=== PATIENT | female | born 1985 | race Two or more races ===

== ENCOUNTER 2017-12-22 03:19 | Emergency (ER) | payer SELFPAY ==
[~2017-12-22] VITALS: Ht 160 cm; Wt 52.2 kg
--- NOTE | 2017-12-22 03:23 | NUR ---
PT BIB [facility] WITH A C/O YELLING WHILE WALKING THE STREETS, SPEAKING INCOHERENTLY, NOT FOLLOWING COMMANDS. PT BIB [facility] VIA WC. PT IS GRUNTING AND YELLING/CRYING. PT WAS TRIAGED IN ROOM #6. PT WAS PLACE ON THE MONITOR AND CONTINUOUS PULSE OX. PT ANSWERS QUESTIONS WHEN TOUCHED. DR. CARLOS IS AT THE BEDSIDE.
--- NOTE | 2017-12-22 03:27 | NUR ---
MEDICATIONS ORDERED AND THEN CANCELLED BY . JonathanYPREXA AND ATIVAN IM WASTED. PT AGREED TO PO MEDICATION.
[2017-12-22] MEDS ORDERED: LORAZEPAM INJ 2 MG/ML VIAL IM ONE (03:30)
[2017-12-22] MEDS ORDERED: OLANZAPINE 10 MG VIAL IM ONE ×2 (03:30→03:33)
--- NOTE | 2017-12-22 03:33 | NUR ---
Levon mercer in [facility] - 12/22/17 at 0432 by JOSHUA PT REC'D MEDICATION ORDRED.
[2017-12-22] MEDS ORDERED: LORAZEPAM INJ 2 MG/ML VIAL ONE (03:34)
[2017-12-22] MEDS ORDERED: OLANZAPINE 5 MG TABLET ONE (03:37)
[2017-12-22] MEDS ORDERED: LORAZEPAM 1 MG TABLET ONE (03:37)
--- NOTE | 2017-12-22 03:40 | NUR ---
PT REC'D MEDICATION ORDERED.
--- NOTE | 2017-12-22 03:50 | NUR ---
PT TRIED TO GIVE A URINE SAMPLE, BUT WAS NOT ABLE TO GIVE ONE AT THIS TIME. PT IS SCRATCHING HER BACK AND ABD. DR. CARLOS NOTIFIED.
[2017-12-22 03:54] LABS: BASOPHILS # (AUTO) 0.1 /CMM (0.0-0.2); BASOPHILS % (AUTO) 1.3 % (0.0-2.0); EOSINOPHILS % (AUTO) 1.6 % (0.0-6.0); HEMATOCRIT 36 % (33-45); HEMOGLOBIN 11.5 g/dL (11.5-14.8); LYMPHOCYTES # (AUTO) 2.7 /CMM (0.8-4.8); LYMPHOCYTES % (AUTO) 39.3 % (20.0-44.0); MEAN CORPUSCULAR HGB CONC 32 g/dl (31.0-36.0); MEAN CORPUSCULAR VOLUME 77 fL (82-100); MONOCYTES # (AUTO) 0.3 /CMM (0.1-1.30); MONOCYTES % (AUTO) 4.4 % (2.0-12.0); NEUTROPHILS # (AUTO) 3.7 /CMM (1.8-8.9); NEUTROPHILS % (AUTO) 53.4 % (43.0-81.0); PLATELET COUNT (AUTO) 323 /CMM (150-450); RDW COEFFICIENT OF VARIATION 17.9 (11.5-15.0); RED BLOOD CELL COUNT(AUTO) 4.69 MIL/uL (4.0-5.2); WHITE BLOOD COUNT (AUTO) 6.9 K/uL (4.3-11.0)
[2017-12-22] MEDS ORDERED: OLANZAPINE 5 MG/TAB.RAPDIS PO ONE ×2 (04:00→05:00)
[2017-12-22] MEDS ORDERED: LORAZEPAM 1 MG TABLET PO ONE (04:00)
[2017-12-22] MEDS ORDERED: diphenhydrAMINE HCL 25 MG CAPSULE ONE (04:04)
--- NOTE | 2017-12-22 04:05 | NUR ---
PT REC'D MEDICATION ORDERED.
[2017-12-22 04:08] LABS: ALANINE AMINOTRANSFERASE 23 U/L (12-78); ALBUMIN 4.3 g/dL (3.4-5.0); ALCOHOL, BLOOD < 3 mg/dL (0-0); ALKALINE PHOSPHATASE 56 U/L (46-116); ASPARTATE AMINOTRANSFERASE 19 U/L (15-37); BILIRUBIN,TOTAL 0.2 mg/dL (0.2-1.0); CALCIUM, SERUM 8.7 mg/dL (8.5-10.1); CARBON DIOXIDE 30 mmol/L (21-32); CHLORIDE 102 mmol/L (98-107); CREATININE 0.8 mg/dL (0.6-1.3); GLUCOSE 95 mg/dL (74-106); SODIUM SERUM 140 mmol/L (136-145); TOTAL PROTEIN, SERUM 8.4 g/dL (6.4-8.2); UREA NITROGEN, BLOOD 17 mg/dL (7-18)
--- NOTE | 2017-12-22 04:10 | NUR ---
IN AND OUT WEBER WAS DONE AND APPROX 50 ML CONCENTRATED YELLOW URINE OUTPUT NOTED. SAMPLE SENT TO LAB.
--- NOTE | 2017-12-22 04:25 | NUR ---
PT REC'D 2 WARM BLANKETS AND A PILLOW.
[2017-12-22] MEDS ORDERED: diphenhydrAMINE HCL 25 MG CAPSULE PO ONE (04:30)
--- NOTE | 2017-12-22 04:34 | NUR ---
PT IS ON THE MONITOR AND CONTINUOUS PULSE OX. VSS. PT APPEARS TO BE SLEEPING COMFORTABLY.
[2017-12-22 04:36] LABS: APPEARANCE,URINE CLEAR (CLEAR); BILIRUBIN,URINE NEGATIVE (NEGATIVE); BLOOD, URINE TRACE-INTA Ery/uL (NEGATIVE); COLOR,URINE YELLOW (YELLOW); KETONES,URINE NEGATIVE (NEGATIVE); LEUKOCYTE ESTERASE ,URINE NEGATIVE (NEGATIVE); NITRITE, URINE NEGATIVE (NEGATIVE); PROTEIN,URINE TRACE mg/dl (NEGATIVE); UGLUCOSE NEGATIVE (NEGATIVE); UROBILINOGEN,URINE 0.2 EU/dL (0.2)
--- NOTE | 2017-12-22 04:45 | NUR ---
PT APPEARS TO BE SLEEPING COMFORTABLY, VSS. PT IS EASILY AROUSED. NAD NOTED.
[2017-12-22 05:46] LABS: BACTERIA,URINE None seen /HPF (None Seen); MUCUS,URINE Moderate /LPF (None Seen); SQUAMOUS EPITHELIAL CELL,UR Moderate /HPF (None Seen); WBC,URINE 0-2 /HPF (0-3)
--- NOTE | 2017-12-22 05:50 | NUR ---
PT WAS SEEN BY GWYN FOOTE LCSW. PT TO BE D/C'D HOME ONCE SHE IS ABLE TO LEAVE.
--- NOTE | 2017-12-22 07:13 | NUR ---
Patient discharged to home in stable condition. Written and verbal after care instructions given. Patient verbalizes understanding of instruction. PT AMBULATED OUT WITH A STEADY GAIT. VSS
[2017-12-22 07:23] VITALS: BP 109/72
== END 2017-12-22 07:23 | disposition home or self-care (01) ==
LOC: ER 03:21
DX: R45.86 Emotional lability (principal); R41.82 Altered mental status, unspecified; F19.10 Other psychoactive substance abuse, uncomplicated; F31.9 Bipolar disorder, unspecified; Z59.0 Homelessness
CPT/HCPCS: 36415; 51701; 80048; 80076; 80305; 81001; 84703; 85025; 99284; G0480; J3490; Q0163; Z7610; 81000-TC; J2060

== ENCOUNTER 2018-01-02 01:25 | Emergency (ER) | payer SELFPAY ==
[~2018-01-02] VITALS: Ht 162.6 cm; Wt 49.9 kg
--- NOTE | 2018-01-02 01:35 | NUR ---
PT BIB [facility] WITH A C/O PSYCH. PT WAS RUNNING AROUND THE STREETS WITH HER PANTS AROUND HER ANKLES. PT IS OCCASIONALLY YELLING/SCREAMING. PT IS TALKING TO HERSELF. PT WAS TAKEN TO ROOM #15. PT IS ON THE MONITOR AND CONTINUOUS PULSE OX. WILL CONTINUE TO MONITOR THE PT.
--- NOTE | 2018-01-02 02:39 | NUR ---
PT IS RESTING IN BED WITH NO S/S OF PAIN OR DISTRESS.
[2018-01-02 03:29] LABS: BASOPHILS # (AUTO) 0.1 /CMM (0.0-0.2); BASOPHILS % (AUTO) 0.7 % (0.0-2.0); EOSINOPHILS % (AUTO) 2.4 % (0.0-6.0); HEMATOCRIT 35 % (33-45); HEMOGLOBIN 11.1 g/dL (11.5-14.8); LYMPHOCYTES # (AUTO) 3.3 /CMM (0.8-4.8); LYMPHOCYTES % (AUTO) 40.4 % (20.0-44.0); MEAN CORPUSCULAR HEMOGLOBIN 25 PG (26.0-33.0); MEAN CORPUSCULAR HGB CONC 32 g/dl (31.0-36.0); MEAN CORPUSCULAR VOLUME 77 fL (82-100); MONOCYTES # (AUTO) 0.5 /CMM (0.1-1.30); MONOCYTES % (AUTO) 5.9 % (2.0-12.0); NEUTROPHILS # (AUTO) 4.1 /CMM (1.8-8.9); NEUTROPHILS % (AUTO) 50.6 % (43.0-81.0); PLATELET COUNT (AUTO) 310 /CMM (150-450); RDW COEFFICIENT OF VARIATION 18.2 (11.5-15.0); RED BLOOD CELL COUNT(AUTO) 4.53 MIL/uL (4.0-5.2); WHITE BLOOD COUNT (AUTO) 8.1 K/uL (4.3-11.0)
[2018-01-02 03:48] LABS: ALANINE AMINOTRANSFERASE 27 U/L (12-78); ALBUMIN 4.2 g/dL (3.4-5.0); ALCOHOL, BLOOD < 3 mg/dL (0-0); ALKALINE PHOSPHATASE 58 U/L (46-116); ASPARTATE AMINOTRANSFERASE 19 U/L (15-37); BILIRUBIN,DIRECT 0.1 mg/dL (0.0-0.2); BILIRUBIN,TOTAL 0.5 mg/dL (0.2-1.0); CARBON DIOXIDE 29 mmol/L (21-32); CHLORIDE 104 mmol/L (98-107); CREATININE 0.9 mg/dL (0.6-1.3); GLUCOSE 92 mg/dL (74-106); POTASSIUM 3.6 mmol/L (3.5-5.1); SODIUM SERUM 139 mmol/L (136-145); TOTAL PROTEIN, SERUM 8.4 g/dL (6.4-8.2); UREA NITROGEN, BLOOD 14 mg/dL (7-18)
[2018-01-02 03:50] LABS: SALICYLATE 2.3 mg/dL (2.8-20.0)
[2018-01-02 03:51] LABS: ACETAMINOPHEN 0 ug/ml (10-30)
--- NOTE | 2018-01-02 03:59 | NUR ---
PT REC'D A SANDWICH AND IS TOLERATING PO WELL.
[2018-01-02 04:11] LABS: APPEARANCE,URINE SL CLOUDY (CLEAR); BILIRUBIN,URINE NEGATIVE (NEGATIVE); BLOOD, URINE 3+ Ery/uL (NEGATIVE); COLOR,URINE DARK YELLO (YELLOW); KETONES,URINE NEGATIVE (NEGATIVE); LEUKOCYTE ESTERASE ,URINE NEGATIVE (NEGATIVE); NITRITE, URINE NEGATIVE (NEGATIVE); PROTEIN,URINE 1+ mg/dl (NEGATIVE); UGLUCOSE NEGATIVE (NEGATIVE); UROBILINOGEN,URINE 0.2 EU/dL (0.2)
[2018-01-02 04:28] LABS: MUCUS,URINE Moderate /LPF (None Seen); SQUAMOUS EPITHELIAL CELL,UR Moderate /HPF (None Seen)
[2018-01-02 04:29] LABS: BACTERIA,URINE Moderate /HPF (None Seen)
[2018-01-02 05:40] VITALS: BP 100/71
== END 2018-01-02 05:41 | disposition home or self-care (01) ==
LOC: ER 01:30
DX: F15.129 Other stimulant abuse with intoxication, unspecified (principal); F31.9 Bipolar disorder, unspecified; Z59.0 Homelessness
CPT/HCPCS: 36415; 80048; 80076; 80305; 80329; 81001; 85025; 87086; 99284; A4606; G0480 ×2; Z7610; 81000-TC

== ENCOUNTER 2018-01-15 11:42 | Emergency (ER) | payer SELFPAY ==
[~2018-01-15] VITALS: Ht 157.5 cm; Wt 68.0 kg
== END 2018-01-15 12:39 | disposition home or self-care (01) ==
LOC: ER 11:44
DX: T16.1XXA Foreign body in right ear, initial encounter (principal); F31.9 Bipolar disorder, unspecified; Z59.0 Homelessness; X58.XXXA Exposure to other specified factors, initial encounter; Y93.89 Activity, other specified; Y92.89 Other specified places as the place of occurrence of the external cause; Y99.8 Other external cause status